=== PATIENT | male | born 1945 | race Caucasian/White ===

== ENCOUNTER 2016-08-13 11:05 | Emergency (ER) | payer OTHER ==
[~2016-08-13] VITALS: Ht 172.7 cm; Wt 94.4 kg
[~2016-08-13 11:05] MED LIST: AMARYL1 MG PO; ANTIFUNGAL15 G1 TP; ATORVASTATIN CA40 MG PO; CELEBREX200 MG PO; COUMADIN5 MG PO; FLOMAX0.4 MG PO; FLONASE16 G1 BOTH NARES; GARLIC1000 MG PO; GEMFIBROZIL600 MG; GLUCOSAMINE CO1 EAC3; HYDROCHLOROTHIA25 MG PO; METFORMIN HCL1000 MG PO; METFORMIN HCL500 MG PO; METHOTREXATE2.5 MG PO; NAPROSYN500 MG PO; PRAVACHOL40 MG PO; PREDNISONE1 MG PO; PREDNISONE5 MG PO; PREVACID30 MG PO; PRINIVIL5 MG PO; RECLAST5 MG/100 M; VITAMIN D2000 UNIT PO
[2016-08-13 13:34] LABS: HEMATOCRIT 42.7 % (38.0-50.0); MCH 30.2 PG (29.0-34.0); MCHC 33.3 G/DL (30.0-36.0); MCV 90.9 FL (86-99); MEAN PLAT.VOLUME 8.7 uM^3 (9.0-12.4); PLATELET COUNT 312 K/uL (156-360); RBC DIS.WIDTH-CV 12.8 % (11.8-14.6); RBC DIS.WIDTH-SD 42.4 % (39-53); WHITE BLOOD COUNT 8.4 K/uL (4.1-10.2)
[2016-08-13] MEDS ORDERED: XARELTO20 MG PO (15:09)
[2016-08-13] MEDS ORDERED: XARELTO15 MG PO (15:09)
[2016-08-13 15:33] VITALS: BP 106/62
== END 2016-08-13 15:34 | disposition home or self-care (01) ==
LOC: EME 11:05
DX: I82.402 Acute embolism and thrombosis of unspecified deep veins of left lower extremity (principal); E11.9 Type 2 diabetes mellitus without complications; I10 Essential (primary) hypertension; E78.5 Hyperlipidemia, unspecified; K21.9 Gastro-esophageal reflux disease without esophagitis; Z79.84 Long term (current) use of oral hypoglycemic drugs; Z87.891 Personal history of nicotine dependence
CPT/HCPCS: 85027; 93971; 99281; 99285

== ENCOUNTER 2017-02-10 15:03 | Inpatient (IN) | payer OTHER ==
[~2017-02-10] VITALS: Ht 170.2 cm; Wt 86.8 kg
[~2017-02-10 15:03] MED LIST changes: -PREDNISONE1 MG PO; +XARELTO15 MG PO; +XARELTO20 MG PO
[2017-02-10 15:22] LABS: POINT-OF-CARE METER ID UU13113778
[2017-02-10 15:30] LABS: HEMATOCRIT 39.5 % (38.0-50.0); MCH 30.3 PG (29.0-34.0); MCHC 34.2 G/DL (30.0-36.0); MCV 88.6 FL (86-99); MEAN PLAT.VOLUME 8.7 uM^3 (9.0-12.4); PLATELET COUNT 326 K/uL (156-360); RBC DIS.WIDTH-CV 12.9 % (11.8-14.6); RBC DIS.WIDTH-SD 41.9 % (39-53); RED BLOOD COUNT 4.46 M/uL (4.00-5.50); WHITE BLOOD COUNT 7.4 K/uL (4.1-10.2)
[2017-02-10 15:37] LABS: CHLORIDE 99 mEq/L (99-109); POTASSIUM 4.7 mEq/L (3.7-5.4); SODIUM 136 mEq/L (136-147)
[2017-02-10 15:39] LABS: GLUCOSE 150 mg/dL (70-99)
[2017-02-10 15:40] LABS: ANION GAP 13 MEQ/L (2-14)
[2017-02-10 15:43] LABS: GFR ESTIMATE (CALCULATED) > 59 mL/min/
[2017-02-10 15:44] LABS: UREA NITROGEN (BUN) 13 mg/dL (9-23)
[2017-02-10 16:40] LABS: INTER. NORMALIZED RATIO 1.1; PROTHROMBIN TIME 12.4 SEC (10.2-12.9)
[2017-02-10 16:41] LABS: TOTAL BILIRUBIN 0.6 mg/dL (0.0-1.0)
[2017-02-10 16:42] LABS: ALKALINE PHOSPHATASE 60 IU/L (3-129); SERUM ETHYL ALCOHOL < 10 mg/dL
[2017-02-10 16:43] LABS: PTT 29.6 SEC (25-37)
[2017-02-10 16:44] LABS: DIRECT BILIRUBIN 0.2 mg/dL (0.0-0.3)
[2017-02-10 16:45] LABS: SALICYLATE < 5.0 MG/DL (15-30)
[2017-02-10 16:46] LABS: LIPASE 46 U/L (1.0-51.0)
[2017-02-10 16:47] LABS: TROP-I INTERPRETATION NEGATIVE; TROPONIN-I < 0.01 ng/mL (0.0-0.30)
[2017-02-10 18:58] LABS: CREATINE KINASE 30 IU/L (1-294); TOTAL CK 30 IU/L (1-294)
[2017-02-10 19:03] LABS: CK-MB 2.3 ng/mL (0.0-4.9)
[2017-02-10] MEDS ORDERED: GABAPENTIN300 MG PO (19:33)
[2017-02-10] MEDS ORDERED: LISINOPRIL10 MG PO (19:34)
[2017-02-10] MEDS ORDERED: PRAVACHOL80 MG PO (19:34)
[2017-02-10 19:51] LABS: ADD MIUA? NO; BILIRUBIN NEGATIVE; BLOOD NEGATIVE; COLOR YELLOW ((YELLOW)); GLUCOSE (STRIP) NEGATIVE; KETONES NEGATIVE; LEUKOCYTES NEGATIVE; NITRITE NEGATIVE; PROTEIN (STRIP) NEGATIVE; SPECIFIC GRAVITY 1.015 (1.000-1.030); UROBILINOGEN 0.2 MG/DL (0.2-1.0)
[2017-02-10 19:59] LABS: AMPHETAMINE NEGATIVE (500 ng/mL); BARBITURATES NEGATIVE (200 ng/mL); BENZODIAZEPINES NEGATIVE (150 ng/mL); COCAINE NEGATIVE (150 ng/mL); INTERNAL CONTROLS VALID? YES; METHADONE NEGATIVE (200 ng/mL); METHAMPHETAMINE NEGATIVE (500 ng/mL); OPIATES (MORPHINE) NEGATIVE (100 ng/mL); OXYCODONE NEGATIVE (100 ng/mL); PHENCYCLIDINE NEGATIVE (25 ng/mL); PROPOXYPHENE NEGATIVE (300 ng/mL); THC CANNABINOIDS NEGATIVE (50 ng/mL); TRICYCLIC ANTIDEPRESSANTS NEGATIVE (300 ng/mL)
[2017-02-10 20:28] LABS: UCUL ADDED? NO
[2017-02-10 22:17] VITALS: BP 124/59
[2017-02-11] VITALS (7 sets, daily range): BP systolic 90–126; BP diastolic 50–65
[2017-02-11 07:05] LABS: Estimated Average Glucose 143 mg/dL (70-123); HEMOGLOBIN A1c (GLYCOHEMOGLOB) 6.6 % HGB (Below 5.7)
[2017-02-11 07:12] LABS: MCH 31.4 PG (29.0-34.0); MCHC 34.1 G/DL (30.0-36.0); MCV 92.2 FL (86-99); MEAN PLAT.VOLUME 8.9 uM^3 (9.0-12.4); PLATELET COUNT 255 K/uL (156-360); RBC DIS.WIDTH-CV 13.2 % (11.8-14.6); RBC DIS.WIDTH-SD 43.9 % (39-53); RED BLOOD COUNT 3.47 M/uL (4.00-5.50); WHITE BLOOD COUNT 5.4 K/uL (4.1-10.2)
[2017-02-11 07:16] LABS: ANION GAP 5 MEQ/L (2-14); CHLORIDE 108 MEQ/L (99-109); GFR ESTIMATE (CALCULATED) > 59 mL/min/; SAMPLE HEMOLYSIS CHECK 0; SAMPLE ICTERIC CHECK 0; SAMPLE LIPEMIA CHECK 0; SODIUM 139 MEQ/L (136-147); UREA NITROGEN (BUN) 8 mg/dL (9-23)
[2017-02-11 07:17] LABS: GLUCOSE 102 mg/dL (70-99); POTASSIUM 3.6 MEQ/L (3.7-5.4)
[2017-02-11 11:28] LABS: POINT-OF-CARE METER ID UU13113725
[2017-02-11 14:52] LABS: ANION GAP 5 MEQ/L (2-14); CHLORIDE 109 MEQ/L (99-109); POTASSIUM 3.9 MEQ/L (3.7-5.4); SAMPLE HEMOLYSIS CHECK 0; SAMPLE ICTERIC CHECK 0; SAMPLE LIPEMIA CHECK 0; SODIUM 140 MEQ/L (136-147)
[2017-02-11 14:57] LABS: GFR ESTIMATE (CALCULATED) > 59 mL/min/; GLUCOSE 104 mg/dL (70-99); UREA NITROGEN (BUN) 8 mg/dL (9-23)
[2017-02-11 15:07] LABS: INTACT PARATHYROID HORMONE 24 pg/mL (10-69)
[2017-02-11 16:10] LABS: POINT-OF-CARE METER ID UU13113725
[2017-02-11 21:35] LABS: POINT-OF-CARE METER ID UU13113725
[2017-02-12 04:15] VITALS: BP 136/76
[2017-02-12 06:34] LABS: POINT-OF-CARE METER ID UU13113725
[2017-02-12 07:05] VITALS: BP 114/59
[2017-02-12 07:45] LABS: ANION GAP 3 MEQ/L (2-14); CHLORIDE 109 MEQ/L (99-109); GFR ESTIMATE (CALCULATED) > 59 mL/min/; GLUCOSE 111 mg/dL (70-99); SAMPLE HEMOLYSIS CHECK 0; SAMPLE ICTERIC CHECK 0; SAMPLE LIPEMIA CHECK 0; SODIUM 141 MEQ/L (136-147); UREA NITROGEN (BUN) 6 mg/dL (9-23)
[2017-02-12 11:00] VITALS: BP 122/61
[2017-02-12 11:31] LABS: POINT-OF-CARE METER ID UU13113725
[2017-02-12] MEDS ORDERED: CITALOPRAM HBR10 MG PO (12:02)
[2017-02-12] MEDS ORDERED: MAG-OXIDE400 MG PO (12:03)
[2017-02-12] MEDS ORDERED: FOLIC ACID1 MG PO (12:03)
[2017-02-12 13:28] LABS: HEMATOCRIT 38.2 % (38.0-50.0); MCV 93.6 FL (86-99)
[2017-02-12 15:28] VITALS: BP 111/56
[2017-02-12 16:23] LABS: TREPONEMA ANTIBODY NEGATIVE (NEGATIVE)
[2017-02-12 16:42] LABS: POINT-OF-CARE METER ID UU13113725
[2017-02-12 20:45] LABS: POINT-OF-CARE METER ID UU13113725
[2017-02-12 23:28] VITALS: BP 124/71
[2017-02-13 06:02] LABS: POINT-OF-CARE METER ID UU13113725; POINT-OF-CARE USER ID 608261329
[2017-02-13 06:14] LABS: MCH 29.9 PG (29.0-34.0); MCHC 33.1 G/DL (30.0-36.0); MCV 90.4 FL (86-99); PLATELET COUNT 258 K/uL (156-360); RBC DIS.WIDTH-CV 12.8 % (11.8-14.6); RBC DIS.WIDTH-SD 42.2 % (39-53); RED BLOOD COUNT 3.54 M/uL (4.00-5.50); WHITE BLOOD COUNT 5.3 K/uL (4.1-10.2)
[2017-02-13 06:37] LABS: CHLORIDE 111 MEQ/L (99-109); GFR ESTIMATE (CALCULATED) > 59 mL/min/; GLUCOSE 120 mg/dL (70-99); POTASSIUM 3.7 MEQ/L (3.7-5.4); SODIUM 143 MEQ/L (136-147); UREA NITROGEN (BUN) 8 mg/dL (9-23)
[2017-02-13 06:38] LABS: ANION GAP 5 MEQ/L (2-14); SAMPLE HEMOLYSIS CHECK 0; SAMPLE ICTERIC CHECK 0; SAMPLE LIPEMIA CHECK 0
[2017-02-13 07:19] VITALS: BP 125/59
[2017-02-13] MEDS ORDERED: RISPERIDONE0.5 MG PO (08:28)
[2017-02-13 11:40] LABS: POINT-OF-CARE METER ID UU13113725
== END 2017-02-13 15:52 | disposition home or self-care (01) | DRG 948 ==
LOC: EME 15:03 → EDOF 20:05 → 5EAST 20:05 → ENRESERV 20:12 → 5EAST 22:17
PROVIDERS: Hospitalist; Internal Medicine; Physician Assistant
DX: R41.82 Altered mental status, unspecified (principal); E87.2 Acidosis; I95.9 Hypotension, unspecified; E86.0 Dehydration; E83.42 Hypomagnesemia; E83.51 Hypocalcemia; E78.5 Hyperlipidemia, unspecified; I10 Essential (primary) hypertension; F43.23 Adjustment disorder with mixed anxiety and depressed mood; F03.90 Unspecified dementia, unspecified severity, without behavioral disturbance, psychotic disturbance, mood disturbance, and anxiety; R00.0 Tachycardia, unspecified; E53.8 Deficiency of other specified B group vitamins; E11.9 Type 2 diabetes mellitus without complications; F43.10 Post-traumatic stress disorder, unspecified; E87.6 Hypokalemia; Z88.7 Allergy status to serum and vaccine; Z91.09 Other allergy status, other than to drugs and biological substances; Z79.899 Other long term (current) drug therapy; Z87.442 Personal history of urinary calculi; Z79.84 Long term (current) use of oral hypoglycemic drugs
CPT/HCPCS: 70450; 71020; 80048; 80048 91; 80076; 80202; 81003; 82040; 82306; 82330; 82550 91; 82553; 82607; 82746; 82948; 83036; 83605; 83690; 83735; 83970; 84100; 84443; 84484; 85014; 85018; 85027; 85610; 85730; 86780; 87040; 90686; 90839; 93005; 93971; 99281; 99285; G0480; J1815; J2543; J3260; J3370; J3415; J3475; J7030; J7050; J7512

== ENCOUNTER 2017-02-24 21:31 | Observation (INO) | payer OTHER ==
[~2017-02-24] VITALS: Ht 175.3 cm; Wt 84.7 kg
[~2017-02-24 21:31] MED LIST changes: +CITALOPRAM HBR10 MG PO; +FOLIC ACID1 MG PO; +GABAPENTIN300 MG PO; +LISINOPRIL10 MG PO; +MAG-OXIDE400 MG PO; +PRAVACHOL80 MG PO; +RISPERIDONE0.5 MG PO
[2017-02-24 22:01] LABS: HEMATOCRIT 38.5 % (38.0-50.0); MCH 29.7 PG (29.0-34.0); MCHC 32.5 G/DL (30.0-36.0); MCV 91.4 FL (86-99); MEAN PLAT.VOLUME 8.9 uM^3 (9.0-12.4); PLATELET COUNT 335 K/uL (156-360); RBC DIS.WIDTH-CV 13.6 % (11.8-14.6); RBC DIS.WIDTH-SD 45.5 % (39-53); RED BLOOD COUNT 4.21 M/uL (4.00-5.50)
[2017-02-24 22:11] LABS: CHLORIDE 102 mEq/L (99-109); POTASSIUM 4.1 mEq/L (3.7-5.4); SODIUM 133 mEq/L (136-147)
[2017-02-24 22:12] LABS: GLUCOSE 245 mg/dL (70-99)
[2017-02-24 22:14] LABS: ANION GAP 10 MEQ/L (2-14)
[2017-02-24 22:16] LABS: GFR ESTIMATE (CALCULATED) 58 mL/min/
[2017-02-24 22:17] LABS: UREA NITROGEN (BUN) 13 mg/dL (9-23)
[2017-02-24 22:23] LABS: TROP-I INTERPRETATION NEGATIVE; TROPONIN-I < 0.01 ng/mL (0.0-0.30)
[2017-02-24 22:45] LABS: INTER. NORMALIZED RATIO 1.2; PROTHROMBIN TIME 13.1 SEC (10.2-12.9)
[2017-02-25 04:05] VITALS: BP 96/55
[2017-02-25 06:16] LABS: TROP-I INTERPRETATION NEGATIVE; TROPONIN-I < 0.01 ng/mL (0.0-0.30)
[2017-02-25 08:36] VITALS: BP 117/64
[2017-02-25 08:53] LABS: POINT-OF-CARE METER ID UU14162513
[2017-02-25 12:07] VITALS: BP 99/61
[2017-02-25 12:33] LABS: TROP-I INTERPRETATION NEGATIVE; TROPONIN-I < 0.01 ng/mL (0.0-0.30)
[2017-02-25 13:01] LABS: POINT-OF-CARE METER ID UU14162513
[2017-02-25 16:36] VITALS: BP 112/64
[2017-02-25 17:48] LABS: POINT-OF-CARE METER ID UU13113700
== END 2017-02-25 19:57 | disposition home or self-care (01) ==
LOC: EME 21:31 → ENPENDDIS 02-25 → EDOF 02-25 02:39 → ENRESERV 02-25 02:40 → 5WEST 02-25 03:26
PROVIDERS: Internal Medicine
DX: R07.9 Chest pain, unspecified (principal); E11.9 Type 2 diabetes mellitus without complications; F43.23 Adjustment disorder with mixed anxiety and depressed mood; E78.5 Hyperlipidemia, unspecified; M06.9 Rheumatoid arthritis, unspecified; I82.532 Chronic embolism and thrombosis of left popliteal vein; Z87.442 Personal history of urinary calculi; Z85.820 Personal history of malignant melanoma of skin; Z85.828 Personal history of other malignant neoplasm of skin; Z87.891 Personal history of nicotine dependence; Z80.0 Family history of malignant neoplasm of digestive organs; Z79.01 Long term (current) use of anticoagulants; Z88.7 Allergy status to serum and vaccine; Z79.4 Long term (current) use of insulin; Z79.82 Long term (current) use of aspirin
CPT/HCPCS: 71020; 71275; 80048; 82948; 84484; 85027; 85610; 85730; 93005; 99281; 99284; G0378

== ENCOUNTER 2017-03-27 19:47 | Inpatient (IN) | payer OTHER ==
[~2017-03-27] VITALS: Ht 175.3 cm; Wt 83.1 kg
[~2017-03-27 19:47] MED LIST changes: -AMARYL1 MG PO; -ATORVASTATIN CA40 MG PO; -FLOMAX0.4 MG PO; -FLONASE16 G1 BOTH NARES; -GABAPENTIN300 MG PO; -METFORMIN HCL1000 MG PO
[2017-03-27 20:17] LABS: HEMATOCRIT 40.7 % (38.0-50.0); MCH 29.5 PG (29.0-34.0); MCHC 33.2 G/DL (30.0-36.0); MCV 89.1 FL (86-99); MEAN PLAT.VOLUME 8.9 uM^3 (9.0-12.4); PLATELET COUNT 356 K/uL (156-360); RBC DIS.WIDTH-CV 12.8 % (11.8-14.6); RED BLOOD COUNT 4.57 M/uL (4.00-5.50); WHITE BLOOD COUNT 8.3 K/uL (4.1-10.2)
[2017-03-27 20:25] LABS: CHLORIDE 102 mEq/L (99-109); POTASSIUM 4.2 mEq/L (3.7-5.4); SODIUM 139 mEq/L (136-147)
[2017-03-27 20:27] LABS: GLUCOSE 202 mg/dL (70-99)
[2017-03-27 20:28] LABS: ANION GAP 9 MEQ/L (2-14)
[2017-03-27 20:31] LABS: GFR ESTIMATE (CALCULATED) > 59 mL/min/
[2017-03-27 20:32] LABS: UREA NITROGEN (BUN) 7 mg/dL (9-23)
[2017-03-27 20:37] LABS: TROP-I INTERPRETATION NEGATIVE; TROPONIN-I < 0.01 ng/mL (0.0-0.30)
[2017-03-28 02:03] VITALS: BP 128/62
[2017-03-28 04:06] LABS: TROP-I INTERPRETATION NEGATIVE; TROPONIN-I 0.01 ng/mL (0.0-0.30)
[2017-03-28 06:59] VITALS: BP 112/59
[2017-03-28 10:31] LABS: ADD MIUA? YES; BILIRUBIN NEGATIVE; BLOOD SMALL; COLOR YELLOW ((YELLOW)); GLUCOSE (STRIP) NEGATIVE; KETONES NEGATIVE; LEUKOCYTES LARGE; NITRITE NEGATIVE; PROTEIN (STRIP) 30; SPECIFIC GRAVITY 1.023 (1.000-1.030)
[2017-03-28] MEDS ORDERED: FLONASE16 G1 BOTH NARES (10:31)
[2017-03-28] MEDS ORDERED: ATORVASTATIN CA40 MG PO (10:31)
[2017-03-28] MEDS ORDERED: METFORMIN HCL1000 MG PO (10:31)
[2017-03-28] MEDS ORDERED: FLOMAX0.4 MG PO (10:31)
[2017-03-28] MEDS ORDERED: PREDNISONE1 MG PO (10:31)
[2017-03-28] MEDS ORDERED: GABAPENTIN300 MG PO (10:31)
[2017-03-28] MEDS ORDERED: AMARYL1 MG PO (10:31)
[2017-03-28 10:35] VITALS: BP 116/59
[2017-03-28] MEDS ORDERED: XARELTO20 MG PO (10:36)
[2017-03-28] MEDS ORDERED: DONEPEZIL HCL5 MG PO (10:37)
[2017-03-28] MEDS ORDERED: FOLIC ACID1 MG PO (10:37)
[2017-03-28] MEDS ORDERED: RISPERIDONE0.5 MG PO (10:37)
[2017-03-28] MEDS ORDERED: CITALOPRAM HBR20 MG PO (10:37)
[2017-03-28 10:46] LABS: POINT-OF-CARE METER ID UU13113831
[2017-03-28 10:58] LABS: BACTERIA RARE /HPF; EPITHELIAL CELLS NONE SEEN /HPF; MUCUS NONE SEEN /LPF; RED BLOOD CELLS 0-5 /HPF (0-5); UCUL ADDED? YES; WHITE BLOOD CELLS TNTC /HPF (0-5)
[2017-03-28 13:31] LABS: TROP-I INTERPRETATION NEGATIVE; TROPONIN-I 0.01 ng/mL (0.0-0.30)
[2017-03-28 14:17] LABS: POINT-OF-CARE METER ID UU14107333
[2017-03-28 16:00] VITALS: BP 132/79
[2017-03-28 18:05] LABS: POINT-OF-CARE METER ID UU13113831
[2017-03-28 19:13] VITALS: BP 148/70
[2017-03-28 21:32] LABS: POINT-OF-CARE METER ID UU14162513
[2017-03-29] VITALS (7 sets, daily range): BP systolic 118–150; BP diastolic 55–81
[2017-03-29 05:31] LABS: EOSINOPHIL (%) 4.2 % (0-5); EOSINOPHIL COUNT 0.3 K/uL (0-0.3); HEMATOCRIT 35.3 % (38.0-50.0); IMMATURE GRANULOCYTE (%) 0.2 % (0.0-0.7); INSTRUMENT ABS NEUTROPHIL CT 4.7 K/uL; LYMPHOCYTE COUNT 1.1 K/uL (1.0-2.8); MCH 29.5 PG (29.0-34.0); MCHC 33.1 G/DL (30.0-36.0); MCV 89.1 FL (86-99); MEAN PLAT.VOLUME 8.9 uM^3 (9.0-12.4); MONOCYTE (%) 7.1 % (3-12); MONOCYTE COUNT 0.5 K/uL (0-0.8); NEUTROPHIL (%) 70.9 % (45-76); NEUTROPHIL COUNT 4.7 K/uL (1.8-6.4); PLATELET COUNT 257 K/uL (156-360); RBC DIS.WIDTH-CV 12.8 % (11.8-14.6); RBC DIS.WIDTH-SD 41.7 % (39-53); RED BLOOD COUNT 3.96 M/uL (4.00-5.50); WHITE BLOOD COUNT 6.6 K/uL (4.1-10.2)
[2017-03-29 05:50] LABS: GFR ESTIMATE (CALCULATED) > 59 mL/min/; UREA NITROGEN (BUN) 4 mg/dL (9-23)
[2017-03-29 06:44] LABS: ANION GAP 8 MEQ/L (2-14); CHLORIDE 106 MEQ/L (99-109); GFR ESTIMATE (CALCULATED) > 59 mL/min/; POTASSIUM 3.4 MEQ/L (3.7-5.4); SAMPLE HEMOLYSIS CHECK 0; SAMPLE ICTERIC CHECK 0; SAMPLE LIPEMIA CHECK 0; SODIUM 141 MEQ/L (136-147); UREA NITROGEN (BUN) 4 mg/dL (9-23)
[2017-03-29 06:48] LABS: GLUCOSE 113 mg/dL (70-99)
[2017-03-29 12:47] LABS: POINT-OF-CARE METER ID UU13113831
[2017-03-29 18:06] LABS: POINT-OF-CARE METER ID UU13113831
[2017-03-29 21:42] LABS: POINT-OF-CARE METER ID UU13113831
[2017-03-30 04:10] VITALS: BP 142/73
[2017-03-30 05:43] LABS: EOSINOPHIL (%) 4.4 % (0-5); EOSINOPHIL COUNT 0.3 K/uL (0-0.3); HEMATOCRIT 34.9 % (38.0-50.0); IMMATURE GRANULOCYTE (%) 0.2 % (0.0-0.7); INSTRUMENT ABS NEUTROPHIL CT 3.8 K/uL; LYMPHOCYTE COUNT 1.3 K/uL (1.0-2.8); MCH 29.4 PG (29.0-34.0); MCHC 33.2 G/DL (30.0-36.0); MCV 88.4 FL (86-99); MONOCYTE (%) 6.8 % (3-12); MONOCYTE COUNT 0.4 K/uL (0-0.8); NEUTROPHIL (%) 66.2 % (45-76); NEUTROPHIL COUNT 3.8 K/uL (1.8-6.4); PLATELET COUNT 286 K/uL (156-360); RBC DIS.WIDTH-CV 12.7 % (11.8-14.6); RBC DIS.WIDTH-SD 41.2 % (39-53); RED BLOOD COUNT 3.95 M/uL (4.00-5.50); WHITE BLOOD COUNT 5.7 K/uL (4.1-10.2)
[2017-03-30 06:07] LABS: ANION GAP 6 MEQ/L (2-14); CHLORIDE 106 MEQ/L (99-109); GFR ESTIMATE (CALCULATED) > 59 mL/min/; GLUCOSE 161 mg/dL (70-99); POTASSIUM 3.7 MEQ/L (3.7-5.4); SAMPLE HEMOLYSIS CHECK 0; SAMPLE ICTERIC CHECK 0; SAMPLE LIPEMIA CHECK 0; SODIUM 139 MEQ/L (136-147); UREA NITROGEN (BUN) 4 mg/dL (9-23)
[2017-03-30 08:23] VITALS: BP 122/74
[2017-03-30 12:34] LABS: POINT-OF-CARE METER ID UU14162513
[2017-03-30] MEDS ORDERED: CEFTIN500 MG PO (13:17)
[2017-03-30] MEDS ORDERED: PANTOPRAZOLE SO40 MG PO (13:18)
== END 2017-03-30 16:11 | disposition home health service (06) | DRG 375 ==
LOC: EME 19:47 → 5WEST 03-28 00:51 → EDOF 03-28 00:51 → ENRESERV 03-28 00:53 → 5WEST 03-28 02:00 → CANRESERV 03-28 15:39 → ENRESERV 03-28 15:39 → 5WEST 03-30 16:11
PROVIDERS: Hospitalist; Internal Medicine
PROC: 0DB38ZX Excision of Lower Esophagus, Via Natural or Artificial Opening Endoscopic, Diagnostic (ICD-10-PCS; principal; 2017-03-28)
DX: C15.5 Malignant neoplasm of lower third of esophagus (principal); K22.2 Esophageal obstruction; N39.0 Urinary tract infection, site not specified; E11.9 Type 2 diabetes mellitus without complications; E78.5 Hyperlipidemia, unspecified; K21.0 Gastro-esophageal reflux disease with esophagitis; K44.9 Diaphragmatic hernia without obstruction or gangrene; F03.90 Unspecified dementia, unspecified severity, without behavioral disturbance, psychotic disturbance, mood disturbance, and anxiety; N40.0 Benign prostatic hyperplasia without lower urinary tract symptoms; F43.10 Post-traumatic stress disorder, unspecified; F43.23 Adjustment disorder with mixed anxiety and depressed mood; M06.9 Rheumatoid arthritis, unspecified; Z79.84 Long term (current) use of oral hypoglycemic drugs; Z79.01 Long term (current) use of anticoagulants; Z86.718 Personal history of other venous thrombosis and embolism; Z87.891 Personal history of nicotine dependence; Z85.820 Personal history of malignant melanoma of skin; Z87.442 Personal history of urinary calculi
CPT/HCPCS: 71020; 71260; 74177; 80048; 81003; 82565; 82948; 84484; 84520; 85025; 85027; 87077; 87086; 87186; 88305; 93005; 99281; 99285; C9113; J0696; J1650; J1815; J2250; J7030; J7050; J7512

== ENCOUNTER 2017-04-11 23:47 | Inpatient (IN) | payer OTHER ==
[~2017-04-11] VITALS: Ht 167.6 cm; Wt 82.1 kg
[~2017-04-11 23:47] MED LIST changes: +AMARYL1 MG PO; +ATORVASTATIN CA40 MG PO; +CEFTIN500 MG PO; +CITALOPRAM HBR20 MG PO; +DONEPEZIL HCL5 MG PO; +FLOMAX0.4 MG PO; +FLONASE16 G1 BOTH NARES; +GABAPENTIN300 MG PO; +METFORMIN HCL1000 MG PO; +PANTOPRAZOLE SO40 MG PO; +PREDNISONE1 MG PO
[2017-04-12 00:38] LABS: HEMATOCRIT 42.1 % (38.0-50.0); MCHC 32.5 G/DL (30.0-36.0); MEAN PLAT.VOLUME 8.6 uM^3 (9.0-12.4); PLATELET COUNT 362 K/uL (156-360); RBC DIS.WIDTH-CV 13.2 % (11.8-14.6); RBC DIS.WIDTH-SD 42.8 % (39-53); RED BLOOD COUNT 4.73 M/uL (4.00-5.50); WHITE BLOOD COUNT 8.3 K/uL (4.1-10.2)
[2017-04-12 00:41] LABS: CHLORIDE 98 mEq/L (99-109); POTASSIUM 4.7 mEq/L (3.7-5.4); SODIUM 133 mEq/L (136-147)
[2017-04-12 00:43] LABS: GLUCOSE 183 mg/dL (70-99)
[2017-04-12 00:44] LABS: ANION GAP 10 MEQ/L (2-14)
[2017-04-12 00:47] LABS: GFR ESTIMATE (CALCULATED) > 59 mL/min/
[2017-04-12 00:48] LABS: UREA NITROGEN (BUN) 8 mg/dL (9-23)
[2017-04-12 00:53] LABS: TROP-I INTERPRETATION NEGATIVE; TROPONIN-I < 0.01 ng/mL (0.0-0.30)
[2017-04-12 04:51] VITALS: BP 141/76
[2017-04-12 05:13] VITALS: BP 141/76
[2017-04-12 05:16] LABS: HEMATOCRIT 37.7 % (38.0-50.0); MCH 29.2 PG (29.0-34.0); MCHC 32.9 G/DL (30.0-36.0); MCV 88.9 FL (86-99); MEAN PLAT.VOLUME 8.8 uM^3 (9.0-12.4); PLATELET COUNT 326 K/uL (156-360); RBC DIS.WIDTH-SD 42.7 % (39-53); RED BLOOD COUNT 4.24 M/uL (4.00-5.50); WHITE BLOOD COUNT 7.6 K/uL (4.1-10.2)
[2017-04-12 05:28] LABS: TROP-I INTERPRETATION NEGATIVE; TROPONIN-I < 0.01 ng/mL (0.0-0.30)
[2017-04-12 05:41] LABS: ANION GAP 8 MEQ/L (2-14); CHLORIDE 98 MEQ/L (99-109); GFR ESTIMATE (CALCULATED) > 59 mL/min/; GLUCOSE 170 mg/dL (70-99); POTASSIUM 4.2 MEQ/L (3.7-5.4); SAMPLE HEMOLYSIS CHECK 0; SAMPLE ICTERIC CHECK 0; SAMPLE LIPEMIA CHECK 0; SODIUM 136 MEQ/L (136-147); UREA NITROGEN (BUN) 8 mg/dL (9-23)
[2017-04-12 07:45] LABS: POINT-OF-CARE METER ID UU14314088
[2017-04-12 09:18] VITALS: BP 130/67
[2017-04-12 10:22] LABS: POINT-OF-CARE METER ID UU13113819
[2017-04-12 11:17] LABS: POINT-OF-CARE METER ID UU14314088
[2017-04-12 12:32] VITALS: BP 137/81
[2017-04-12 13:13] LABS: TROP-I INTERPRETATION NEGATIVE; TROPONIN-I < 0.01 ng/mL (0.0-0.30)
[2017-04-12 15:39] VITALS: BP 134/78
[2017-04-12 16:39] LABS: POINT-OF-CARE METER ID UU14314088
[2017-04-12 19:15] VITALS: BP 116/58
[2017-04-13 00:01] LABS: POINT-OF-CARE METER ID UU13113781
[2017-04-13 00:45] VITALS: BP 124/65
[2017-04-13 04:33] VITALS: BP 107/53
[2017-04-13 05:57] LABS: POINT-OF-CARE METER ID UU13113781
[2017-04-13 07:08] VITALS: BP 123/66
[2017-04-13 07:32] LABS: POINT-OF-CARE METER ID UU13113698
[2017-04-13 10:52] VITALS: BP 130/60
[2017-04-13 11:16] LABS: POINT-OF-CARE METER ID UU13113698
[2017-04-13] MEDS ORDERED: PAIN RELIE500 MG/15 PO (13:25)
== END 2017-04-13 15:04 | disposition home health service (06) | DRG 376 ==
LOC: EME 23:47 → EDOF 04-12 03:34 → 4EAST 04-12 03:34 → ENRESERV 04-12 03:34 → 4EAST 04-12 04:14
PROVIDERS: Hospitalist
PROC: 0DC38ZZ Extirpation of Matter from Lower Esophagus, Via Natural or Artificial Opening Endoscopic (ICD-10-PCS; principal; 2017-04-12)
DX: C15.5 Malignant neoplasm of lower third of esophagus (principal); K22.2 Esophageal obstruction; T18.128A Food in esophagus causing other injury, initial encounter; K22.70 Barrett's esophagus without dysplasia; E11.9 Type 2 diabetes mellitus without complications; E78.5 Hyperlipidemia, unspecified; I10 Essential (primary) hypertension; F03.90 Unspecified dementia, unspecified severity, without behavioral disturbance, psychotic disturbance, mood disturbance, and anxiety; F32.9 Major depressive disorder, single episode, unspecified; F43.10 Post-traumatic stress disorder, unspecified; M06.9 Rheumatoid arthritis, unspecified; N40.0 Benign prostatic hyperplasia without lower urinary tract symptoms; Z87.891 Personal history of nicotine dependence; Z87.442 Personal history of urinary calculi; Z85.820 Personal history of malignant melanoma of skin; Z86.718 Personal history of other venous thrombosis and embolism; Z79.01 Long term (current) use of anticoagulants
CPT/HCPCS: 71020; 80048; 80048 91; 82948; 84484; 85027; 93005; 99281; 99285; C9113; J0330; J1100; J2405; J2920; J3010; J3480; J7030

== ENCOUNTER → 2017-04-30 | Outpatient (CLI) | payer OTHER ==
[~2017-04-30] MED LIST changes: +COLACE100 MG PO; +FENTANYL1 EAC5 TD; +MORPHINE S10 MG/5 ML PO; +PAIN RELIE500 MG/15 PO; +TRAMADOL HCL50 MG PO
[2017-04-30 09:44] LABS: POINT-OF-CARE METER ID UU14174212
[2017-04-30 10:08] LABS: INTER. NORMALIZED RATIO 1.2; PROTHROMBIN TIME 13.7 SEC (10.2-12.9)
[2017-04-30 10:11] LABS: PTT 31.2 SEC (25-37)
[2017-04-30 10:19] LABS: HEMATOCRIT 40.2 % (38.0-50.0); MCH 28.4 PG (29.0-34.0); MCHC 32.8 G/DL (30.0-36.0); MCV 86.6 FL (86-99); MEAN PLAT.VOLUME 8.6 uM^3 (9.0-12.4); PLATELET COUNT 343 K/uL (156-360); RBC DIS.WIDTH-CV 13.2 % (11.8-14.6); RBC DIS.WIDTH-SD 41.6 % (39-53); RED BLOOD COUNT 4.64 M/uL (4.00-5.50); WHITE BLOOD COUNT 6.2 K/uL (4.1-10.2)
[2017-04-30 10:50] LABS: ABS NEUTROPHIL COUNT 4.7; ATYPICAL LYMPHOCYTE 1.8 %; BASOPHILS 0.9 %; EOSINOPHIL ABS CT 0.3; EOSINOPHILS 4.4 % (0-5.0); INSTRUMENT ABS NEUTROPHIL CT 4.2 K/uL; LYMPHOCYTES 14.9 % (15.0-45.0); PLAT.SUFFICIENCY ADEQUATE; SEG.NEUTROPHILS 76.3 % (46.0-76.0); SMUDGE CELLS 5.3
== END | disposition home or self-care (01) ==
LOC: EDSTATUS 09:00 → OPR 09:00
PROVIDERS: Internal Medicine Hematology & Oncology
PROC: 0QB13ZX Excision of Sacrum, Percutaneous Approach, Diagnostic (ICD-10-PCS; principal; 2017-04-30)
DX: R93.7 Abnormal findings on diagnostic imaging of other parts of musculoskeletal system (principal); Z85.01 Personal history of malignant neoplasm of esophagus
CPT/HCPCS: 77012; 82948; 85007 GA; 85025 GA; 85610; 85730; 88305; 88311; J3010

== ENCOUNTER → 2017-05-23 | Outpatient (CLI) | payer OTHER ==
[~2017-05-23] VITALS: Ht 170.2 cm; Wt 80.7 kg
[~2017-05-23] MED LIST changes: +ARICEPT10 MG PO; +FOLIC ACID0.4 MG PO; +NEURONTIN300 MG PO; +RAYOS5 MG PO; +ZESTRIL10 MG PO
== END | disposition home or self-care (01) ==
LOC: AMB 10:02
PROVIDERS: Internal Medicine Gastroenterology
PROC: 0DJ08ZZ Inspection of Upper Intestinal Tract, Via Natural or Artificial Opening Endoscopic (ICD-10-PCS; principal; 2017-05-23)
DX: C15.5 Malignant neoplasm of lower third of esophagus (principal); K22.70 Barrett's esophagus without dysplasia; I10 Essential (primary) hypertension; N40.1 Benign prostatic hyperplasia with lower urinary tract symptoms; E11.40 Type 2 diabetes mellitus with diabetic neuropathy, unspecified; E78.5 Hyperlipidemia, unspecified; K21.9 Gastro-esophageal reflux disease without esophagitis; K44.9 Diaphragmatic hernia without obstruction or gangrene; G31.84 Mild cognitive impairment of uncertain or unknown etiology; E66.9 Obesity, unspecified; G47.33 Obstructive sleep apnea (adult) (pediatric); M81.0 Age-related osteoporosis without current pathological fracture; F43.10 Post-traumatic stress disorder, unspecified; M06.9 Rheumatoid arthritis, unspecified; Z85.828 Personal history of other malignant neoplasm of skin; Z87.891 Personal history of nicotine dependence; Z79.84 Long term (current) use of oral hypoglycemic drugs; Z79.52 Long term (current) use of systemic steroids; Z79.899 Other long term (current) drug therapy
CPT/HCPCS: 82948; C1726

== ENCOUNTER 2017-06-22 18:05 | Inpatient (IN) | payer OTHER ==
[~2017-06-22] VITALS: Ht 175.3 cm; Wt 68.7 kg
[2017-06-22 19:48] LABS: BASOPHIL (%) 0.9 % (0-1); EOSINOPHIL (%) 2.4 % (0-5); EOSINOPHIL COUNT 0.1 K/uL (0-0.3); HEMATOCRIT 37.9 % (38.0-50.0); IMMATURE GRANULOCYTE (%) 0.6 % (0.0-0.7); LYMPHOCYTE (%) 18.6 % (15-42); LYMPHOCYTE COUNT 0.6 K/uL (1.0-2.8); MCH 27.9 PG (29.0-34.0); MCHC 34.3 G/DL (30.0-36.0); MCV 81.3 FL (86-99); MONOCYTE (%) 12.3 % (3-12); MONOCYTE COUNT 0.4 K/uL (0-0.8); NEUTROPHIL (%) 65.2 % (45-76); NEUTROPHIL COUNT 2.2 K/uL (1.8-6.4); PLATELET COUNT 324 K/uL (156-360); RBC DIS.WIDTH-CV 13.9 % (11.8-14.6); RBC DIS.WIDTH-SD 40.1 % (39-53); RED BLOOD COUNT 4.66 M/uL (4.00-5.50); WHITE BLOOD COUNT 3.3 K/uL (4.1-10.2)
[2017-06-22 19:54] LABS: INTER. NORMALIZED RATIO 1.8
[2017-06-22 19:57] LABS: PTT 33.4 SEC (25-37)
[2017-06-22 20:00] LABS: CHLORIDE 101 mEq/L (99-109); POTASSIUM 3.3 mEq/L (3.7-5.4); SODIUM 136 mEq/L (136-147)
[2017-06-22 20:01] LABS: MAGNESIUM 1.3 mg/dL (1.3-2.7)
[2017-06-22 20:02] LABS: GLUCOSE 121 mg/dL (70-99)
[2017-06-22 20:06] LABS: CREATININE 0.7 mg/dL (0.6-1.3); GFR ESTIMATE (CALCULATED) > 59 mL/min/ (58.99-99999)
[2017-06-22 20:07] LABS: UREA NITROGEN (BUN) 5 mg/dL (9-23)
[2017-06-22 20:14] LABS: TROP-I INTERPRETATION NEGATIVE; TROPONIN-I < 0.01 ng/mL (0.0-0.30)
[2017-06-23 00:13] LABS: BASOPHIL (%) 1.3 % (0-1); EOSINOPHIL (%) 3.3 % (0-5); EOSINOPHIL COUNT 0.1 K/uL (0-0.3); HEMATOCRIT 34.9 % (38.0-50.0); HEMOGLOBIN 11.9 G/DL (12.5-16.6); IMMATURE GRANULOCYTE (%) 0.7 % (0.0-0.7); LYMPHOCYTE (%) 21.7 % (15-42); LYMPHOCYTE COUNT 0.7 K/uL (1.0-2.8); MCH 27.6 PG (29.0-34.0); MCHC 34.1 G/DL (30.0-36.0); MONOCYTE (%) 12.3 % (3-12); MONOCYTE COUNT 0.4 K/uL (0-0.8); NEUTROPHIL (%) 60.7 % (45-76); NEUTROPHIL COUNT 1.8 K/uL (1.8-6.4); PLATELET COUNT 329 K/uL (156-360); RBC DIS.WIDTH-CV 13.8 % (11.8-14.6); RBC DIS.WIDTH-SD 39.9 % (39-53); RED BLOOD COUNT 4.31 M/uL (4.00-5.50)
[2017-06-23 02:08] VITALS: BP 147/75
[2017-06-23 07:00] VITALS: BP 131/63
[2017-06-23 16:24] VITALS: BP 124/64
[2017-06-23 19:48] VITALS: BP 116/68
[2017-06-23 23:05] VITALS: BP 116/69
[2017-06-24 03:48] VITALS: BP 111/67
[2017-06-24 06:28] LABS: CREATININE 0.5 MG/DL (0.6-1.3); GFR ESTIMATE (CALCULATED) > 59 mL/min/ (58.99-99999); UREA NITROGEN (BUN) 2 mg/dL (9-23)
[2017-06-24 07:10] VITALS: BP 116/83
[2017-06-24 08:21] LABS: HEMATOCRIT 34.9 % (38.0-50.0); HEMOGLOBIN 11.6 G/DL (12.5-16.6); MCH 27.2 PG (29.0-34.0); MCHC 33.2 G/DL (30.0-36.0); MCV 81.7 FL (86-99); PLATELET COUNT 302 K/uL (156-360); RBC DIS.WIDTH-SD 40.5 % (39-53); RED BLOOD COUNT 4.27 M/uL (4.00-5.50); WHITE BLOOD COUNT 2.9 K/uL (4.1-10.2)
[2017-06-24 11:00] VITALS: BP 120/76
[2017-06-24 15:00] VITALS: BP 115/80
[2017-06-24] MEDS ORDERED: DECADRON4 MG PO (15:02)
[2017-06-24] MEDS ORDERED: RANITIDINE HCL150 MG PO (15:03)
[2017-06-24] MEDS ORDERED: TRAMADOL HCL50 MG PO (15:04)
[2017-06-24] MEDS ORDERED: FENTANYL1 EAC1 TD (15:05)
[2017-06-24 19:08] VITALS: BP 114/72
[2017-06-24 23:36] VITALS: BP 119/58
[2017-06-25 07:10] LABS: CHLORIDE 101 MEQ/L (99-109); CREATININE 0.5 MG/DL (0.6-1.3); GFR ESTIMATE (CALCULATED) > 59 mL/min/ (58.99-99999); GLUCOSE 103 mg/dL (70-99); MAGNESIUM 1.7 mg/dl (1.3-2.7); POTASSIUM 3.5 MEQ/L (3.7-5.4); SODIUM 135 MEQ/L (136-147); UREA NITROGEN (BUN) 2 mg/dL (9-23)
[2017-06-25 07:19] VITALS: BP 109/70
[2017-06-25 07:19] LABS: HEMATOCRIT 35.4 % (38.0-50.0); HEMOGLOBIN 11.9 G/DL (12.5-16.6); MCHC 33.6 G/DL (30.0-36.0); MCV 83.3 FL (86-99); PLATELET COUNT 330 K/uL (156-360); RBC DIS.WIDTH-CV 14.3 % (11.8-14.6); RBC DIS.WIDTH-SD 42.4 % (39-53); RED BLOOD COUNT 4.25 M/uL (4.00-5.50); WHITE BLOOD COUNT 3.1 K/uL (4.1-10.2)
[2017-06-25] MEDS ORDERED: FLOMAX0.4 MG PO (10:40)
[2017-06-25] MEDS ORDERED: CELEXA20 MG PO (10:40)
[2017-06-25 15:27] VITALS: BP 121/60
[2017-06-25 18:51] LABS: APPEARANCE CLOUDY ((CLEAR)); COLOR BLOODY ((YELLOW)); LEUKOCYTES TRACE; NITRITE NEGATIVE; PH, URINE 7.5 (5-8); SPECIFIC GRAVITY 1.022 (1.000-1.030)
[2017-06-25 18:52] LABS: BILIRUBIN NEGATIVE; BLOOD LARGE; GLUCOSE (STRIP) NEGATIVE; KETONES NEGATIVE; PROTEIN (STRIP) TRACE
[2017-06-25 21:13] LABS: RED BLOOD CELLS TNTC /HPF (0-5); UCUL ADDED? YES
[2017-06-25 22:58] VITALS: BP 105/58
[2017-06-26 06:41] LABS: HEMATOCRIT 34.8 % (38.0-50.0); HEMOGLOBIN 11.5 G/DL (12.5-16.6); MCH 27.3 PG (29.0-34.0); MCV 82.7 FL (86-99); PLATELET COUNT 282 K/uL (156-360); RBC DIS.WIDTH-SD 41.1 % (39-53); RED BLOOD COUNT 4.21 M/uL (4.00-5.50); WHITE BLOOD COUNT 2.9 K/uL (4.1-10.2)
[2017-06-26 07:03] LABS: CHLORIDE 102 MEQ/L (99-109); CREATININE 0.4 MG/DL (0.6-1.3); GFR ESTIMATE (CALCULATED) > 59 mL/min/ (58.99-99999); GLUCOSE 84 mg/dL (70-99); POTASSIUM 3.4 MEQ/L (3.7-5.4); SODIUM 136 MEQ/L (136-147); UREA NITROGEN (BUN) 2 mg/dL (9-23)
[2017-06-26 07:53] VITALS: BP 125/70
[2017-06-26 16:15] VITALS: BP 114/68
[2017-06-27 00:30] VITALS: BP 123/66
[2017-06-27 07:24] VITALS: BP 133/60
[2017-06-27 10:29] LABS: HEMATOCRIT 39.9 % (38.0-50.0); HEMOGLOBIN 13.1 G/DL (12.5-16.6); MCH 27.4 PG (29.0-34.0); MCHC 32.8 G/DL (30.0-36.0); MCV 83.5 FL (86-99); PLATELET COUNT 239 K/uL (156-360); RBC DIS.WIDTH-CV 14.1 % (11.8-14.6); RBC DIS.WIDTH-SD 42.1 % (39-53); RED BLOOD COUNT 4.78 M/uL (4.00-5.50); WHITE BLOOD COUNT 3.2 K/uL (4.1-10.2)
[2017-06-27 11:08] LABS: CHLORIDE 101 MEQ/L (99-109); CREATININE 0.5 MG/DL (0.6-1.3); GFR ESTIMATE (CALCULATED) > 59 mL/min/ (58.99-99999); GLUCOSE 136 mg/dL (70-99); POTASSIUM 3.7 MEQ/L (3.7-5.4); SODIUM 136 MEQ/L (136-147); UREA NITROGEN (BUN) 2 mg/dL (9-23)
[2017-06-27 16:46] VITALS: BP 120/66
[2017-06-27 23:37] VITALS: BP 121/58
[2017-06-28 06:26] LABS: BASOPHIL (%) 1.1 % (0-1); EOSINOPHIL (%) 3.9 % (0-5); EOSINOPHIL COUNT 0.1 K/uL (0-0.3); HEMATOCRIT 36.1 % (38.0-50.0); HEMOGLOBIN 12.1 G/DL (12.5-16.6); IMMATURE GRANULOCYTE (%) 0.3 % (0.0-0.7); LYMPHOCYTE (%) 11.6 % (15-42); LYMPHOCYTE COUNT 0.4 K/uL (1.0-2.8); MCH 27.8 PG (29.0-34.0); MCHC 33.5 G/DL (30.0-36.0); MONOCYTE (%) 11.3 % (3-12); MONOCYTE COUNT 0.4 K/uL (0-0.8); NEUTROPHIL (%) 71.8 % (45-76); NEUTROPHIL COUNT 2.6 K/uL (1.8-6.4); PLATELET COUNT 232 K/uL (156-360); RBC DIS.WIDTH-CV 14.2 % (11.8-14.6); RBC DIS.WIDTH-SD 41.6 % (39-53); RED BLOOD COUNT 4.35 M/uL (4.00-5.50); WHITE BLOOD COUNT 3.6 K/uL (4.1-10.2)
[2017-06-28 06:52] LABS: CHLORIDE 103 MEQ/L (99-109); CREATININE 0.4 MG/DL (0.6-1.3); GFR ESTIMATE (CALCULATED) > 59 mL/min/ (58.99-99999); POTASSIUM 3.3 MEQ/L (3.7-5.4); SODIUM 136 MEQ/L (136-147); UREA NITROGEN (BUN) 2 mg/dL (9-23)
[2017-06-28 06:55] LABS: GLUCOSE 86 mg/dL (70-99)
[2017-06-28 07:28] VITALS: BP 177/82
[2017-06-28] MEDS ORDERED: AUGMENTIN875 MG PO (15:30)
[2017-06-28 15:45] LABS: APPEARANCE CLEAR ((CLEAR)); BILIRUBIN NEGATIVE; BLOOD SMALL; COLOR STRAW ((YELLOW)); GLUCOSE (STRIP) NEGATIVE; KETONES NEGATIVE; LEUKOCYTES NEGATIVE; NITRITE NEGATIVE; PROTEIN (STRIP) NEGATIVE; SPECIFIC GRAVITY 1.005 (1.000-1.030); UROBILINOGEN 0.2 MG/DL (0.2-1.0)
[2017-06-28 15:52] LABS: BACTERIA RARE /HPF; EPITHELIAL CELLS RARE /HPF; MUCUS TRACE /LPF; UCUL ADDED? NO; WHITE BLOOD CELLS 0-5 /HPF (0-5)
== END 2017-06-28 18:25 | disposition home health service (06) | DRG 194 ==
LOC: EME 18:05 → EDOF 23:10 → CANRESERV 23:15 → ENRESERV 23:15 → 5EAST 23:20 → EDOF 23:20 → 5EAST 23:20 → ENRESERV 23:21 → 5EAST 06-23 02:09
PROVIDERS: Emergency Medicine; Hospitalist; Internal Medicine; Physician Assistant Medical
PROC: DD0 Radiation Therapy, Gastrointestinal System, Beam Radiation (ICD-10-PCS; principal; 2017-06-24)
DX: J15.9 Unspecified bacterial pneumonia (principal); C15.5 Malignant neoplasm of lower third of esophagus; C79.51 Secondary malignant neoplasm of bone; R31.0 Gross hematuria; K21.0 Gastro-esophageal reflux disease with esophagitis; Y84.2 Radiological procedure and radiotherapy as the cause of abnormal reaction of the patient, or of later complication, without mention of misadventure at the time of the procedure; K22.2 Esophageal obstruction; E83.42 Hypomagnesemia; E87.6 Hypokalemia; D72.818 Other decreased white blood cell count; E11.9 Type 2 diabetes mellitus without complications; E78.5 Hyperlipidemia, unspecified; N40.1 Benign prostatic hyperplasia with lower urinary tract symptoms; N39.498 Other specified urinary incontinence; N20.0 Calculus of kidney; M19.90 Unspecified osteoarthritis, unspecified site; M06.9 Rheumatoid arthritis, unspecified; F32.9 Major depressive disorder, single episode, unspecified; F02.81 Dementia in other diseases classified elsewhere, unspecified severity, with behavioral disturbance; R41.82 Altered mental status, unspecified; F43.10 Post-traumatic stress disorder, unspecified; Z63.0 Problems in relationship with spouse or partner; Z85.820 Personal history of malignant melanoma of skin; Z79.01 Long term (current) use of anticoagulants; Z79.84 Long term (current) use of oral hypoglycemic drugs; Z87.891 Personal history of nicotine dependence; Z86.718 Personal history of other venous thrombosis and embolism; Z80.0 Family history of malignant neoplasm of digestive organs
CPT/HCPCS: 71045; 71275; 77336; 77385; 77386; 80048; 81003; 82565; 82948; 83735; 84484; 84520; 85025; 85025 91; 85027; 85610; 85730; 87040; 87070; 87086; 87205; 87449; 93005; 99281; 99285; J0295; J0456; J1815; J3010; J3475; J3480; J7030; J7050; J7120

== ENCOUNTER 2017-07-18 10:25 | Emergency (ER) | payer OTHER ==
[~2017-07-18] VITALS: Ht 175.3 cm; Wt 66.3 kg
[~2017-07-18 10:25] MED LIST changes: +AUGMENTIN875 MG PO; +CELEXA20 MG PO; +DECADRON4 MG PO; +DONEPEZIL HCL10 MG PO; +FENTANYL1 EAC1 TD; +GLIMEPIRIDE1 MG PO; +RANITIDINE HCL150 MG PO; +RISPERDAL0.5 MG PO; +SERTRALINE HCL50 MG PO; +TAMSULOSIN HCL0.4 MG PO
[2017-07-18 11:25] LABS: HEMOGLOBIN 12.6 G/DL (12.5-16.6); MCH 28.4 PG (29.0-34.0); MCV 81.3 FL (86-99); RBC DIS.WIDTH-CV 14.9 % (11.8-14.6); RBC DIS.WIDTH-SD 43.8 % (39-53); RED BLOOD COUNT 4.43 M/uL (4.00-5.50)
[2017-07-18 11:27] LABS: WHITE BLOOD COUNT 1.4 K/uL (4.1-10.2)
[2017-07-18 11:49] LABS: CHLORIDE 96 MEQ/L (99-109); CREATININE 0.6 MG/DL (0.6-1.3); GFR ESTIMATE (CALCULATED) > 59 mL/min/ (58.99-99999); GLUCOSE 168 mg/dL (70-99); POTASSIUM 3.7 MEQ/L (3.7-5.4); SODIUM 131 MEQ/L (136-147); UREA NITROGEN (BUN) 5 mg/dL (9-23)
[2017-07-18 11:57] LABS: BASOPHIL (%) 2.2 % (0-1); IMMATURE GRANULOCYTE (%) 0.7 % (0.0-0.7); LYMPHOCYTE (%) 5.2 % (15-42); LYMPHOCYTE COUNT 0.1 K/uL (1.0-2.8); MONOCYTE (%) 11.9 % (3-12); MONOCYTE COUNT 0.2 K/uL (0-0.8)
[2017-07-18 12:08] LABS: PLAT.SUFFICIENCY ADEQUATE; PLATELET COUNT 196 K/uL (156-360)
[2017-07-18 14:19] VITALS: BP 109/60
== END 2017-07-18 14:34 | disposition home or self-care (01) ==
LOC: EME 10:25
PROVIDERS: Emergency Medicine
DX: S20.219A Contusion of unspecified front wall of thorax, initial encounter (principal); W01.0XXA Fall on same level from slipping, tripping and stumbling without subsequent striking against object, initial encounter; Z85.01 Personal history of malignant neoplasm of esophagus; E11.9 Type 2 diabetes mellitus without complications; F03.90 Unspecified dementia, unspecified severity, without behavioral disturbance, psychotic disturbance, mood disturbance, and anxiety; M19.90 Unspecified osteoarthritis, unspecified site; F43.10 Post-traumatic stress disorder, unspecified; Z79.84 Long term (current) use of oral hypoglycemic drugs; Z92.3 Personal history of irradiation; Z92.21 Personal history of antineoplastic chemotherapy; Z87.891 Personal history of nicotine dependence; Z87.442 Personal history of urinary calculi; Z88.7 Allergy status to serum and vaccine
CPT/HCPCS: 71100; 80048; 85025; 99281; 99284

== ENCOUNTER 2017-07-22 09:57 | Inpatient (IN) | payer OTHER ==
[~2017-07-22] VITALS: Ht 175.3 cm; Wt 68.4 kg
[2017-07-22 10:54] LABS: HEMATOCRIT 37.5 % (38.0-50.0); HEMOGLOBIN 13.1 G/DL (12.5-16.6); MCH 28.6 PG (29.0-34.0); MCHC 34.9 G/DL (30.0-36.0); MCV 81.9 FL (86-99); PLATELET COUNT 181 K/uL (156-360); RBC DIS.WIDTH-CV 15.6 % (11.8-14.6); RBC DIS.WIDTH-SD 45.2 % (39-53); RED BLOOD COUNT 4.58 M/uL (4.00-5.50); WHITE BLOOD COUNT 2.3 K/uL (4.1-10.2)
[2017-07-22 11:05] LABS: CARBON DIOXIDE (BICARBONATE) 30.4 MEQ/L (20-31)
[2017-07-22 11:06] LABS: ALBUMIN 2.9 g/dL (3.2-4.8); CHLORIDE 97 mEq/L (99-109); POTASSIUM 3.9 mEq/L (3.7-5.4); SODIUM 131 mEq/L (136-147)
[2017-07-22 11:07] LABS: MAGNESIUM 1.1 mg/dL (1.3-2.7)
[2017-07-22 11:09] LABS: GLUCOSE 213 mg/dL (70-99)
[2017-07-22 11:11] LABS: TOTAL BILIRUBIN 1.4 mg/dL (0.0-1.0)
[2017-07-22 11:12] LABS: ALKALINE PHOSPHATASE 67 IU/L (3-129); CREATININE 0.7 mg/dL (0.6-1.3); GFR ESTIMATE (CALCULATED) > 59 mL/min/ (58.99-99999)
[2017-07-22 11:13] LABS: UREA NITROGEN (BUN) 7 mg/dL (9-23)
[2017-07-22 11:14] LABS: AST (GOT) 21 IU/L (2-34)
[2017-07-22 11:15] LABS: ALT (GPT) 10 IU/L (3-49)
[2017-07-22 11:18] LABS: TROP-I INTERPRETATION NEGATIVE; TROPONIN-I 0.06 ng/mL (0.0-0.30)
[2017-07-22] MEDS ORDERED: DECADRON4 MG PO (11:58)
[2017-07-22] MEDS ORDERED: RANITIDINE HCL150 MG PO (12:01)
[2017-07-22] MEDS ORDERED: COMPAZINE10 MG PO (12:02)
[2017-07-22 12:54] LABS: APPEARANCE SL.HAZY ((CLEAR)); BILIRUBIN SMALL; BLOOD SMALL; COLOR AMBER ((YELLOW)); GLUCOSE (STRIP) NEGATIVE; KETONES 20; LEUKOCYTES NEGATIVE; NITRITE NEGATIVE; PROTEIN (STRIP) 30; SPECIFIC GRAVITY 1.027 (1.000-1.030)
[2017-07-22 12:59] LABS: BACTERIA RARE /HPF; CALCIUM OXALATE CRYSTALS 2+ /HPF; EPITHELIAL CELLS RARE /HPF; HYALINE CASTS 0-5 /LPF; MUCUS TRACE /LPF; RED BLOOD CELLS 30-40 /HPF (0-5); WHITE BLOOD CELLS 0-5 /HPF (0-5)
[2017-07-22 16:13] VITALS: BP 134/78
[2017-07-22 17:10] LABS: TROP-I INTERPRETATION NEGATIVE; TROPONIN-I 0.09 ng/mL (0.0-0.30)
[2017-07-22 19:19] VITALS: BP 97/63
[2017-07-22 22:16] LABS: TROP-I INTERPRETATION NEGATIVE
[2017-07-22 23:44] VITALS: BP 93/54
[2017-07-23] VITALS (7 sets, daily range): BP systolic 60–134; BP diastolic 28–81
[2017-07-23 05:38] LABS: HEMATOCRIT 32.2 % (38.0-50.0); MCH 28.1 PG (29.0-34.0); MCHC 34.2 G/DL (30.0-36.0); MCV 82.4 FL (86-99); PLATELET COUNT 180 K/uL (156-360); RBC DIS.WIDTH-CV 15.8 % (11.8-14.6); RBC DIS.WIDTH-SD 46.5 % (39-53); RED BLOOD COUNT 3.91 M/uL (4.00-5.50); WHITE BLOOD COUNT 2.1 K/uL (4.1-10.2)
[2017-07-23 06:07] LABS: CHLORIDE 103 MEQ/L (99-109); CREATININE 0.4 MG/DL (0.6-1.3); GFR ESTIMATE (CALCULATED) > 59 mL/min/ (58.99-99999); GLUCOSE 100 mg/dL (70-99); MAGNESIUM 1.5 mg/dl (1.3-2.7); POTASSIUM 3.1 MEQ/L (3.7-5.4); SODIUM 134 MEQ/L (136-147); UREA NITROGEN (BUN) 5 mg/dL (9-23)
[2017-07-23 11:24] LABS: TROP-I INTERPRETATION NEGATIVE; TROPONIN-I 0.07 ng/mL (0.0-0.30)
[2017-07-24 03:06] VITALS: BP 100/50
[2017-07-24 06:01] LABS: HEMATOCRIT 30.8 % (38.0-50.0); HEMOGLOBIN 10.4 G/DL (12.5-16.6); MCH 27.9 PG (29.0-34.0); MCHC 33.8 G/DL (30.0-36.0); MCV 82.6 FL (86-99); PLATELET COUNT 170 K/uL (156-360); RBC DIS.WIDTH-CV 15.9 % (11.8-14.6); RBC DIS.WIDTH-SD 46.8 % (39-53); RED BLOOD COUNT 3.73 M/uL (4.00-5.50); WHITE BLOOD COUNT 2.5 K/uL (4.1-10.2)
[2017-07-24 06:32] LABS: CHLORIDE 105 MEQ/L (99-109); CREATININE 0.4 MG/DL (0.6-1.3); GFR ESTIMATE (CALCULATED) > 59 mL/min/ (58.99-99999); GLUCOSE 117 mg/dL (70-99); POTASSIUM 3.5 MEQ/L (3.7-5.4); SODIUM 134 MEQ/L (136-147); UREA NITROGEN (BUN) 3 mg/dL (9-23)
[2017-07-24 08:08] VITALS: BP 109/69
[2017-07-24 11:58] VITALS: BP 93/58
[2017-07-24] MEDS ORDERED: ASPIR 8181 M1 PO (16:57)
[2017-07-25] MEDS ORDERED: TRAMADOL HCL50 MG PO (16:13)
== END 2017-07-24 18:51 | disposition home or self-care (01) | DRG 375 ==
LOC: EME 09:57 → 4EAST 14:35 → EDOF 14:35 → ENRESERV 14:41 → 4EAST 15:51
PROVIDERS: Emergency Medicine; Family Medicine; Internal Medicine
DX: C15.9 Malignant neoplasm of esophagus, unspecified (principal); C79.51 Secondary malignant neoplasm of bone; E46 Unspecified protein-calorie malnutrition; Z68.21 Body mass index [BMI] 21.0-21.9, adult; I95.9 Hypotension, unspecified; Z91.19 Patient's noncompliance with other medical treatment and regimen; D64.81 Anemia due to antineoplastic chemotherapy; D70.1 Agranulocytosis secondary to cancer chemotherapy; T45.1X5A Adverse effect of antineoplastic and immunosuppressive drugs, initial encounter; E86.1 Hypovolemia; M19.90 Unspecified osteoarthritis, unspecified site; I47.1 Supraventricular tachycardia; S22.32XA Fracture of one rib, left side, initial encounter for closed fracture; W01.0XXA Fall on same level from slipping, tripping and stumbling without subsequent striking against object, initial encounter; Y92.009 Unspecified place in unspecified non-institutional (private) residence as the place of occurrence of the external cause; E87.2 Acidosis; E86.0 Dehydration; R13.10 Dysphagia, unspecified; E83.42 Hypomagnesemia; E87.1 Hypo-osmolality and hyponatremia; R31.29 Other microscopic hematuria; E87.6 Hypokalemia; G89.3 Neoplasm related pain (acute) (chronic); F03.90 Unspecified dementia, unspecified severity, without behavioral disturbance, psychotic disturbance, mood disturbance, and anxiety; I10 Essential (primary) hypertension; E11.9 Type 2 diabetes mellitus without complications; N40.0 Benign prostatic hyperplasia without lower urinary tract symptoms; M06.9 Rheumatoid arthritis, unspecified; F43.10 Post-traumatic stress disorder, unspecified; E78.5 Hyperlipidemia, unspecified; I49.3 Ventricular premature depolarization; F60.9 Personality disorder, unspecified; Z85.820 Personal history of malignant melanoma of skin; Z87.891 Personal history of nicotine dependence; Z86.718 Personal history of other venous thrombosis and embolism; Z87.442 Personal history of urinary calculi; Z92.3 Personal history of irradiation; Z92.21 Personal history of antineoplastic chemotherapy; Z79.84 Long term (current) use of oral hypoglycemic drugs
CPT/HCPCS: 70450; 71046; 80048; 80053; 81003; 82803; 82948; 83605; 83735; 83930; 84484; 85027; 87086; 92610 GN; 93005; 93306; 99281; 99284; J1650; J2270; J3475; J7030

== ENCOUNTER 2017-07-24 21:21 | Observation (INO) | payer OTHER ==
[~2017-07-24] VITALS: Ht 175.3 cm; Wt 67.4 kg
[~2017-07-24 21:21] MED LIST changes: +ASPIR 8181 M1 PO; +COMPAZINE10 MG PO
[2017-07-24 21:52] LABS: HEMATOCRIT 32.9 % (38.0-50.0); HEMOGLOBIN 11.5 G/DL (12.5-16.6); MCH 28.4 PG (29.0-34.0); MCV 81.2 FL (86-99); PLATELET COUNT 182 K/uL (156-360); RBC DIS.WIDTH-CV 15.8 % (11.8-14.6); RBC DIS.WIDTH-SD 46.1 % (39-53); RED BLOOD COUNT 4.05 M/uL (4.00-5.50); WHITE BLOOD COUNT 3.3 K/uL (4.1-10.2)
[2017-07-24 22:03] LABS: CHLORIDE 102 mEq/L (99-109); SODIUM 132 mEq/L (136-147)
[2017-07-24 22:04] LABS: GLUCOSE 121 mg/dL (70-99)
[2017-07-24 22:08] LABS: CREATININE 0.5 mg/dL (0.6-1.3); GFR ESTIMATE (CALCULATED) > 59 mL/min/ (58.99-99999)
[2017-07-24 22:09] LABS: UREA NITROGEN (BUN) 3 mg/dL (9-23)
[2017-07-25 00:12] LABS: APPEARANCE SL.HAZY ((CLEAR)); BILIRUBIN NEGATIVE; BLOOD LARGE; COLOR YELLOW ((YELLOW)); GLUCOSE (STRIP) NEGATIVE; KETONES NEGATIVE; LEUKOCYTES NEGATIVE; NITRITE NEGATIVE; PROTEIN (STRIP) NEGATIVE; SPECIFIC GRAVITY 1.013 (1.000-1.030)
[2017-07-25 00:24] LABS: BACTERIA 1+ /HPF; EPITHELIAL CELLS RARE /HPF; HYALINE CASTS 0-5 /LPF; MUCUS 2+ /LPF; RED BLOOD CELLS TNTC /HPF (0-5); UCUL ADDED? YES; WHITE BLOOD CELLS 0-5 /HPF (0-5)
[2017-07-25 04:00] VITALS: BP 111/65
[2017-07-25 08:32] VITALS: BP 110/72
[2017-07-25] MEDS ORDERED: TRAMADOL HCL50 MG PO (16:13)
[2017-07-25 16:45] VITALS: BP 104/64
[2017-07-25 23:40] VITALS: BP 108/68
[2017-07-26 08:11] VITALS: BP 98/58
[2017-07-26 16:53] VITALS: BP 112/81
[2017-07-26 23:51] VITALS: BP 100/65
[2017-07-27 07:21] VITALS: BP 110/57
[2017-07-27 15:51] VITALS: BP 97/62
[2017-07-28] VITALS: BP 100/55
[2017-07-28 08:18] VITALS: BP 90/55
[2017-07-28 14:36] VITALS: BP 90/63
[2017-07-28 23:46] VITALS: BP 99/54
[2017-07-29 07:34] VITALS: BP 101/56
[2017-07-29] MEDS ORDERED: ATIVAN0.5 MG PO (12:30)
[2017-07-29] MEDS ORDERED: MORPHINE CON20 MG/M1 PO (12:30)
== END 2017-07-29 15:15 | disposition home or self-care (01) ==
LOC: EME 21:21 → EDOF 23:28 → 5SOUTH 23:28 → EDOF 23:28 → ENRESERV 23:44 → CANRESERV 23:44 → ENRESERV 23:56 → 5SOUTH 07-25 02:43
PROVIDERS: Emergency Medicine; Hospitalist
DX: R53.1 Weakness (principal); C15.9 Malignant neoplasm of esophagus, unspecified; C79.9 Secondary malignant neoplasm of unspecified site; F03.90 Unspecified dementia, unspecified severity, without behavioral disturbance, psychotic disturbance, mood disturbance, and anxiety; Z92.21 Personal history of antineoplastic chemotherapy; Z92.3 Personal history of irradiation; I82.522 Chronic embolism and thrombosis of left iliac vein; F43.10 Post-traumatic stress disorder, unspecified; N40.0 Benign prostatic hyperplasia without lower urinary tract symptoms; M06.9 Rheumatoid arthritis, unspecified; E87.1 Hypo-osmolality and hyponatremia; E86.0 Dehydration; Z74.3 Need for continuous supervision; Z74.2 Need for assistance at home and no other household member able to render care; E11.9 Type 2 diabetes mellitus without complications; I95.9 Hypotension, unspecified
CPT/HCPCS: 80048 91; 81003; 82948; 85027; 87077; 87086; 87186; 99281; 99285; G0378; G8978 GP CM; G8979 GP CM; G8987 CK; G8988 GO CJ; J1644; J7040